=== PATIENT | male | born 1950 | race Caucasian/White ===

== ENCOUNTER 2016-10-08 03:14 | Inpatient (IN) ==
[2016-10-08] MEDS ORDERED: ASPIRIN PO STA (03:22)
--- NOTE | 2016-10-08 04:01 | PROVIDER DOCUMENTATION ---
HPI-Chest Pain - General Chief Complaint: Chest Pain Stated Complaint: chest pain Time Seen by Provider: 10/08/16 03:20 Source: patient Allergies/Adverse Reactions: Patient Allergies Allergy/AdvReac Type Severity Reaction Status Date / Time Sulfa (Sulfonamide Allergy HIVES Verified 06/30/15 16:25 Antibiotics) Home Medications: Home Medication List Medication Instructions Recorded Confirmed Last Taken Type Clopidogrel Bisulfate [Plavix] 75 mg PO DAILY 06/30/15 10/08/16 06/30/15 08:00 History Isosorbide Mononitrate E.r. [Imdur] 120 mg PO DAILY 06/30/15 10/08/16 06/30/15 08:00 History Budesonide/Formoterol Inhaler 2 puff INH RTBID 07/01/15 10/08/16 Unknown History [Symbicort 160/4.5 Microgm Inhaler] Carvedilol 12.5 mg PO BID 07/01/15 10/08/16 Unknown History Gabapentin 300 mg PO HS 07/01/15 10/08/16 Unknown History Oxybutynin [Ditropan] 2.5 mg PO HS 07/01/15 10/08/16 Unknown History Temazepam 15 mg PO HS 07/01/15 10/08/16 Unknown History Nitroglycerin [Nitroglycerin 1 spray SL Q5M PRN PRN #1 bottle 07/16/15 10/08/16 Unknown Rx Lingual [place]] Alprazolam 1 mg PO PRN PRN 10/08/16 10/08/16 Unknown History Amlodipine Besylate 5 mg PO DAILY 10/08/16 10/08/16 Unknown History Furosemide 40 mg PO DAILY 10/08/16 10/08/16 Unknown History Hydrochlorothiazide 25 mg PO DAILY 10/08/16 10/08/16 Unknown History Iron Carbonyl/Vit C/Vit B12/FA 1 tab PO DAILY 10/08/16 10/08/16 Unknown History [Icar-C Plus] Mirtazapine 30 mg PO DAILY 10/08/16 10/08/16 Unknown History Paroxetine HCl 60 mg PO DAILY 10/08/16 10/08/16 Unknown History Quetiapine Fumarate 25 mg PO DAILY 10/08/16 10/08/16 Unknown History - History of Present Illness-CP Nature of Presenting Problem: hx of ihdz sp cabg woke up midnight with central chest pain out of spray ntg pain pushing4 hrs Location: reports: substernal, central Chest Pain Radiation: reports: no radiation Quality of Pain: reports: pressure Severity in ED: moderate Onset/Duration: 4-6 hours ago Timing: still present Context/Activities at Onset: reports: sleep Modifying Factors: improves with: nothing Associated Symptoms: denies: diaphoresis, dizziness, edema, heartburn Nitro Today/Relief: provided by EMS Aspirin Treatment Today: no aspirin today Prior Chest Pain/Cardiac Workup: reports: angina, cardiac cath, cardiolite scan , echocardiography, heart attack, stress test, thallium scan Similar Symptoms Previously?: Yes Recently Seen Here or By Another Healthcare Provider: No Review of Systems - Adult - REVIEW OF SYSTEMS - ADULT Constitutional: reports: no symptoms reported Eyes: reports: no symptoms reported Ears, Nose, Mouth & Throat: reports: no symptoms reported Cardiovascular: reports: chest pain Respiratory: reports: no symptoms reported Gastrointestinal: reports: no symptoms reported Genitourinary: reports: no symptoms reported Musculoskeletal: reports: no symptoms reported Integumentary: reports: no symptoms reported Neurological: reports: no symptoms reported Psychiatric: reports: no symptoms reported Endocrine: reports: no symptoms reported Hematologic/Lymphatic: reports: no symptoms reported Allergic/Immunologic: reports: no symptoms reported Past History - Adult - PAST MEDICAL HISTORY-ADULT Review of Records: reports: Nursing Assessment Review, Medications Reviewed, Social history reviewed & non-contributory. Major Childhood Illnesses: reports: denies history Cardiovascular: reports: CAD, HTN, hyperlipidemia, pacemaker Respiratory: reports: asthma, COPD, other (toxic exposure agent orange in [place]) Gastrointestinal: reports: denies history Obstetrical/Gynecological: reports: denies history Genitourinary: reports: denies history Musculoskeletal: reports: denies history Neurological: reports: denies history Endocrine/Immune: reports: Diabetes Other Conditions: reports: denies history - PRIOR SURGERIES/PROCEDURES Surgical/Procedure History: reports: CABG, pacemaker, hernia repair - IMMUNIZATION STATUS Childhood Immunizations: See Nurse Assessment Flu Vaccine: See Nurse Assessment - FAMILY HISTORY Family History: reviewed, not pertinent - SOCIAL HISTORY Smoking: denies Living Situation: family Physical Exam-General - PHYSICAL EXAM-ADULT Initial Vital Signs Reviewed: Yes - CONSTITUTIONAL General Appearance: appears well, alert, mild distress - EYES Eyes: PERRL/EOMI, pink conjunctivae - HEAD, EARS, NOSE, MOUTH & THROAT HENMT: normocephalic/atraumatic, moist mucous membranes, normal ENT inspection - NECK Neck: non-tender, full range of motion, supple - RESPIRATORY Respiratory: lungs clear - CARDIOVASCULAR Cardiovascular: regular rate, rhythm, no edema - GASTROINTESTINAL (ABDOMEN) Abdominal Exam: normal bowel sounds, non tender, soft - LYMPHATIC Lymphatic: no adenopathy - MUSCULOSKELETAL Back Exam: normal inspection, no CVA tenderness, no vertebral tenderness Extremity: normal range of motion, non-tender, normal gait - SKIN Integumentary: normal color, normal turgor - NEUROLOGIC Neurologic: grossly normal - PSYCHIATRIC Psych/Mental Status: oriented x 3 Progress - PLAN OF CARE/RESULTS Progress/Plan/Lab Results: Vital Signs - 8 hr 10/08/16 03:16 10/08/16 04:42 10/08/16 05:57 Temperature 98.2 F 98.0 F 98.0 F Pulse Rate 102 H 92 H 79 Respiratory Rate 18 18 18 Blood Pressure 170/92 119/78 112/61 O2 Sat by Pulse Oximetry 100 99 99 10/08/16 06:34 10/08/16 07:27 10/08/16 08:33 Temperature 98.0 F 97.8 F Pulse Rate 92 H 88 88 Respiratory Rate 18 16 16 Blood Pressure 163/76 142/83 152/86 O2 Sat by Pulse Oximetry 96 99 100 Laboratory Results - last 24 hr 10/08/16 10/08/16 10/08/16 03:35 03:35 03:35 WBC RBC Hgb Hct MCV MCH MCHC RDW Std Deviation Plt Count MPV Immature Gran % (Auto) Neut % (Auto) Lymph % (Auto) Ocean % (Auto) Eos % (Auto) Baso % (Auto) Immature Gran # (Auto) Neut # (Auto) Lymph # (Auto) [place] # (Auto) Eos # (Auto) Baso # (Auto) PT INR APTT (Factor Assay) D-Dimer Specimen Type Sample Site pH pCO2 pO2 HCO3 Base Excess Oxyhemoglobin ABG O2 Sat (Calculated) ABG O2 Saturation ABG Carboxyhemoglobin ABG Methemoglobin Roman Test A-a O2 Difference Total Hemoglobin Lactate Liter Flow Blood Gas Modality FiO2 % Sodium 133 L Potassium 4.2 Chloride 94 L Carbon Dioxide 20 L Anion Gap 19 BUN 20 Creatinine 1.2 Estimated GFR/1.73 m2 60 BUN/Creatinine Ratio 17 Glucose 522 H* Calculated Osmolality 293 Calcium 8.8 Magnesium 2.1 Total Bilirubin < 0.15 L AST 25 ALT 31 Alkaline Phosphatase 112 Creatine Kinase 308 H Creatine Kinase Index 3.2 H CK-MB (CK-2) 9.89 H Troponin T < 0.010 [id number] Pept 418 H Total Protein 7.6 Albumin 4.7 Globulin 3.0 Albumin/Globulin Ratio 2.0 10/08/16 10/08/16 10/08/16 03:35 03:35 04:36 WBC 8.60 RBC 3.49 L Hgb 7.2 L Hct 26.2 L MCV 75.1 L MCH 20.6 L MCHC 27.5 L RDW Std Deviation 16.9 H Plt Count 259 MPV 12.0 H Immature Gran % (Auto) 0.9 H Neut % (Auto) 83.3 H Lymph % (Auto) 11.3 L Ocean % (Auto) 4.3 Eos % (Auto) 0.0 Baso % (Auto) 0.2 Immature Gran # (Auto) 0.08 H Neut # (Auto) 7.16 H Lymph # (Auto) 0.97 L Ocean # (Auto) 0.37 Eos # (Auto) 0.00 Baso # (Auto) 0.02 PT 13.3 INR 0.98 APTT (Factor Assay) 25.8 D-Dimer < 0.22 L Specimen Type ARTERIAL Sample Site L RADIAL pH 7.43 pCO2 34 L pO2 105 H HCO3 23.8 Base Excess -1.5 Oxyhemoglobin 97.1 ABG O2 Sat (Calculated) 10.5 L ABG O2 Saturation 100.2 H ABG Carboxyhemoglobin 2.30 ABG Methemoglobin 0.8 Roman Test YES A-a O2 Difference 81.0 Total Hemoglobin 7.5 L Lactate 6.20 H* Liter Flow 3.0 Blood Gas Modality CANNULA FiO2 % 32.0 Sodium Potassium Chloride Carbon Dioxide Anion Gap BUN Creatinine Estimated GFR/1.73 m2 BUN/Creatinine Ratio Glucose Calculated Osmolality Calcium Magnesium Total Bilirubin AST ALT Alkaline Phosphatase Creatine Kinase Creatine Kinase Index CK-MB (CK-2) Troponin T [id number] Pept Total Protein Albumin Globulin Albumin/Globulin Ratio 10/08/16 10/08/16 06:07 06:07 WBC RBC Hgb Hct MCV MCH MCHC RDW Std Deviation Plt Count MPV Immature Gran % (Auto) Neut % (Auto) Lymph % (Auto) Ocean % (Auto) Eos % (Auto) Baso % (Auto) Immature Gran # (Auto) Neut # (Auto) Lymph # (Auto) [place] # (Auto) Eos # (Auto) Baso # (Auto) PT INR APTT (Factor Assay) D-Dimer Specimen Type Sample Site pH pCO2 pO2 HCO3 Base Excess Oxyhemoglobin ABG O2 Sat (Calculated) ABG O2 Saturation ABG Carboxyhemoglobin ABG Methemoglobin Roman Test A-a O2 Difference Total Hemoglobin Lactate Liter Flow Blood Gas Modality FiO2 % Sodium Potassium Chloride Carbon Dioxide Anion Gap BUN Creatinine Estimated GFR/1.73 m2 BUN/Creatinine Ratio Glucose Calculated Osmolality Calcium Magnesium Total Bilirubin AST ALT Alkaline Phosphatase Creatine Kinase 271 H Creatine Kinase Index CK-MB (CK-2) Troponin T 0.026 D [id number] Pept Total Protein Albumin Globulin Albumin/Globulin Ratio Orders Category Date Time Status Cardiac Monitoring DIRECTED Care 10/08/16 03:22 Active Oxygen Therapy- ED Nursing DIRECTED Care 10/08/16 03:22 Active Saline Loc NOW Care 10/08/16 03:22 Active CHEST-2 VIEWS [RAD] Stat Exams 10/08/16 03:22 Completed ABG [RESP] Routine Lab 10/08/16 04:36 Completed CBC WITH ELECTRONIC DIFF [HEME] Stat Lab 10/08/16 03:35 Completed CK PROFILE [SP CHEM] Stat Lab 10/08/16 03:35 Completed CK TOTAL [CHEM] Stat Lab 10/08/16 06:07 Completed COMPREHENSIVE METABOLIC PANEL [CHEM] Stat Lab 10/08/16 03:[address] D-D[address]ER [address] [COAG] Stat Lab 10/08/16 03:35 Completed MAGNESIUM [CHEM] Stat Lab 10/08/16 03:35 Completed PRO B-NATRIURETIC PEPTIDE Stat Lab 10/08/16 03:35 Com[address]IME WITH INR PL [COAG] Stat Lab 10/08/16 03:[address] [COAG] Stat Lab 10/08/16 03:35 Completed TROPONIN T Stat Lab 10/08/16 03:35 Completed TROPONIN T Stat Lab 10/08/16 06:07 Completed Aspirin Med 10/08/16 03:22 Discontinued 325 mg PO STAT STA Nitroglycerin Med 10/08/16 07:14 Discontinued 1 inch TOP NOW ONE Nitroglycerin Sl [Nitroglycerin] Med 10/08/16 04:08 Discontinued 0.4 mg SL NOW ONE EKG [EKG] Stat Ther 10/08/16 03:22 Draft EKG [EKG] Stat Ther 10/08/16 05:51 Draft Result Diagrams: 10/08/16 03:35 10/08/16 03:35 - REASSESSMENT Reassessment #2 Time Reassessed: 07:06 (accepted @ shift change. For past mo, pt says gets CP when he runs out of Oxygen. He has been out since Friday. He was also out of NTG spray. CP is sharp, ant chest, rad to L arm, assoc with SOB. Had similar CP in ED when got up to go to RR, also had Nausea this time. No cough, no fever , no reason to suspect sepsis) - EKG 1 Time of EKG reading by physician:: 04:02 EKG Read and Signed by:: Bj Walters Rate: 100 Rhythm: sinus [place]: normal QRS: normal NE Interval: normal ST Wave: depressed 2 Time of EKG reading by physician:: 06:04 EKG Read and Signed by:: Bj Walters EKG Interpretation (*Must complete 3 of following elements*): Abnormal Rate: 84 Rhythm: sinus [place]: normal QRS: normal NE Interval: normal ST Wave: depressed, non-specific ST changes Prior EKG Comparison: unchanged from prior 3 Time of EKG reading by physician:: 07:10 EKG Read and Signed by:: Juan Carlos Gilmore EKG Interpretation (*Must complete 3 of following elements*): Abnormal Rate: 109 Rhythm: sinus QRS: normal ST Wave: depressed (v3-v6) Prior EKG Comparison: changes noted Comments: St depression is increased since 2nd EKG - CONSULTS/PCP/HOSPITALIST Notification #1 *Consult/PCP/Hospitalist*: Ana Time Discussed: 07:10 Consult Disposition: Admit #2 Consult: Kenny Time Discussed: 07:30 Reason/Comments: may admit @ [place] Consult Disposition: other (will see as consult, need records, and echo) - CHANGE OF SHIFT REPORT (ED Provider) Report Given and Care Transferred to:: dr gilmore Time of Transfer: 06:17 Items Pending: Labs Departure - Departure Time of Disposition Decision: 09:23 DIAGNOSIS: Acute coronary syndrome Disposition: ADMITTED INPATIENT 09 Certified Medical Emergency: Emergent Condition: Stable Referrals and Follow-Ups: Rip Ruelas MD [Primary Care Provider] - - Critical Care Note This patient required my direct & personal management of CC.: No
[2016-10-08] MEDS ORDERED: NITROGLYCERIN SL ONE (04:08)
[2016-10-08 04:15] LABS: AGAP 19; ALBUMIN 4.7 g/dL (3.5-5.0); ALKALINE PHOSPHATASE 112 U/L (32-122); BUN 20 mg/dL (8-22); CALCIUM 8.8 mg/dL (8.8-10.2); CHLORIDE 94 mmol/L (98-107); CK PROFILE 308 U/L (24-204); COSMO 293; GOT 25 U/L (10-34); GPT 31 U/L (10-44); MAGNESIUM 2.1 mg/dL (1.5-2.7); POTASSIUM 4.2 mmol/L (3.5-5.1); SODIUM 133 mmol/L (136-145); TCO2 20 mmol/L (25-35); TOTAL BILIRUBIN < 0.15 mg/dL (0.20-1.00); TOTAL PROTEIN 7.6 g/dL (6.3-8.3)
[2016-10-08 04:16] LABS: BASO% 0.2 % (0.0-0.8); HEMATOCRIT 26.2 % (42.0-52.0); HEMOGLOBIN 7.2 g/dL (14.0-18.0); IMM GRAN# 0.08 X1000 (0.0-0.04); IMM GRAN% 0.9 % (0.0-0.5); LYMPH# 0.97 X1000 (1.2-3.4); LYMPH% 11.3 % (20.5-51.1); MANUAL DIFF NEEDED? NO; MCH 20.6 PG (27-31); MCHC 27.5 g/dL (33-37); MCV 75.1 FL (81-99); MONO# 0.37 X1000 (0.11-0.59); MONO% 4.3 % (1.7-9.3); NEUT% 83.3 % (42.2-75.2); PLT 259 X1000 (130-400); RBC 3.49 XMIL (4.7-6.1)
[2016-10-08 04:41] LABS: CK INDEX 3.2 (0.0-2.5); CK-MB 9.89 ng/mL (0.0-5.0)
[2016-10-08 04:55] LABS: BE -1.5 mmoll (-3.0-3.0); BLOOD TYPE ARTERIAL; DRAW SITE L RADIAL; METHB 0.8 % (0.0-1.5); O2(CT) 10.5 mL/dL (15.0-23.0); PCO2(98.6) 34 mmHg (35-45); PO2(98.6) 105 mmHg (60-100); SAMPLE BLOOD; SAO2 100.2 % (95.0-100.0); THB 7.5 g/dL (11.5-17.4); pH(98.6) 7.43 (7.35-7.45)
[2016-10-08 04:58] LABS: ALLEN TEST YES; MODALITY CANNULA
[2016-10-08 05:22] LABS: INR 0.98 (0.86-1.15); PROTIME 13.3 Seconds (12.1-15.5)
[2016-10-08 05:23] LABS: PTT PL 25.8 Seconds (22.6-43.9)
--- NOTE | 2016-10-08 06:07 | EKG Report ---
Test Performed on : 10/08/2016 06:01:49 AM Test Reason : 2nd set Blood Pressure : / mmHG Vent. Rate : 084 BPM Atrial Rate : 084 BPM P-R Int : 142 ms QRS Dur : 090 ms QT Int : 388 ms P-R-T Axes : 066 040 176 degrees QTc Int : 458 ms Normal sinus rhythm. ST \T\ T wave abnormality, consider inferior ischemia ST \T\ T wave abnormality, consider anterolateral ischemia Abnormal ECG When compared with ECG of 16-JUL-2015 19:31, Sinus rhythm. has replaced Electronic ventricular pacemaker Unconfirmed Result
[2016-10-08] MEDS ORDERED: NITROGLYCERIN TOP ONE (07:14)
--- NOTE | 2016-10-08 07:32 | EKG Report ---
Test Performed on : 10/08/2016 06:52:21 AM Test Reason : CHEST PAIN Blood Pressure : / mmHG Vent. Rate : 109 BPM Atrial Rate : 109 BPM P-R Int : 130 ms QRS Dur : 088 ms QT Int : 350 ms P-R-T Axes : 074 056 125 degrees QTc Int : 471 ms Atrial-sensed ventricular-paced rhythm Abnormal ECG When compared with ECG of 08-OCT-2016 06:01, Electronic ventricular pacemaker has replaced Sinus rhythm. Unconfirmed Result
--- NOTE | 2016-10-08 08:34 | Diag Imaging Result Doc PS360 ---
EXAM: CHEST-2 VIEWS HISTORY: Chest pain COMMENT: There are sternotomy wires. There is a pacemaker on the left. There are multiple surgical clips over the mediastinum. There is apparently a mesh over the area of the hiatus. There is no evidence of acute cardiac or pulmonary disease and compared with the previous study of 07/16/2015 there has been no significant change. IMPRESSION: Stable chest. Electronically signed by Scott Bella 10/08/2016 8:32 AM
[2016-10-08] MEDS ORDERED: ZOFRAN PO PRN (09:26)
[2016-10-08] MEDS ORDERED: MORPHINE IV PRN ×2 (09:26→09:50)
[2016-10-08] MEDS ORDERED: TYLENOL PO PRN (09:26)
[2016-10-08] MEDS ORDERED: ZOFRAN ODT PO PRN (09:51)
[2016-10-08] MEDS: NITROGLYCERIN TOP SCH ×3 (12:20→20:51)
[2016-10-08] MEDS: HUMULIN R (PARKWAY) SUBQ SCH ×3 (12:30→20:51)
--- NOTE | 2016-10-08 14:28 | EKG Report ---
Test Performed on : 10/08/2016 2:04:55 PM Test Reason : Cardiac eval Blood Pressure : / mmHG Vent. Rate : 100 BPM Atrial Rate : 100 BPM P-R Int : 132 ms QRS Dur : 092 ms QT Int : 348 ms P-R-T Axes : 077 072 246 degrees QTc Int : 448 ms Normal sinus rhythm. Marked ST abnormality, possible inferior subendocardial injury Marked ST abnormality, possible anterior subendocardial injury Abnormal ECG When compared with ECG of 08-OCT-2016 06:52, Sinus rhythm. has replaced Electronic ventricular pacemaker Confirmed by Bj Walters MD ([id number]) on 10/23/2016 10:10:33 PM
--- NOTE | 2016-10-08 14:42 | CONSULTATION ---
DATE OF CONSULTATION: 10/08/2016 IMPRESSION: 1. Accelerated chest pain with mixed features probably representing unstable angina. 2. Severe anemia which is a new diagnosis. Microcytosis evident. 3. Atherosclerotic coronary disease. A) Status post coronary bypass grafting in 1999. B) Most recent evaluation with cardiac catheterization reportedly 6 months ago in [place] and demonstrated no significant coronary obstructive lesions or graft lesions to merit percutaneous intervention and medical therapy recommended. Records not yet available. 4. Severe COPD requiring chronic home oxygen. The patient's interruption of oxygen supply has also contributed to angina symptoms. 5. Hypertension. 6. Type 2 diabetes mellitus. 7. Hypercholesterolemia. 8. History of previous longstanding cigarette use. Discontinued 7 years ago. 9. History of previous heavy alcohol use also discontinued several years ago. 10. Status post permanent pacemaker. RECOMMENDATIONS: 1. Given the low threshold for chest pain in the setting of severe microcytic anemia and severe COPD, favor going ahead and transfusing 2 units packed red blood cells. 2. Obtain iron studies prior to transfusion. 3. Obtain previous cardiac catheterization report. 4. Serial cardiac enzymes. 5. Further recommendations to follow. May potentially consider myocardial perfusion imaging once patient's symptoms stabilize. 6. Ultimately patient will likely need a GI evaluation for possible gastrointestinal blood loss. HISTORY: This 66-year-old, white male, with past history of previous coronary bypass grafting in 1999, severe COPD requiring chronic home oxygen, hypertension, hypercholesterolemia, and type 2 diabetes mellitus was admitted to the emergency room for further evaluation of accelerated chest pain symptoms. He describes chest pain in the left anterior chest and just relates that it is sharp. However he further clarifies that is not a piercing discomfort but hard to describe. Discomfort may radiate to his left arm. He does note the discomfort seems worse with deep breath. He relates that whenever he has not worn his oxygen he might get such discomfort and discomfort might be relieved by wearing his oxygen and taking nitroglycerin. In the last day or so he ran out of oxygen and nitroglycerin. His chest symptoms accelerated. He still does not have any oxygen and had an episode of chest discomfort this morning that did not go away after 4 sublingual nitroglycerins. He came to the emergency room. His discomfort improved with nitroglycerin and oxygen. ECG was abnormal. Initial troponin was normal. He was subsequently admitted for further workup. He relates he has had some recurrence of chest discomfort when he took his oxygen off and walked to the bathroom. Discomfort improved with replacement of oxygen and submental nitroglycerin. He has had no melena or bright red blood per rectum. He relates he had evaluation with cardiac catheterization procedure in [place] 6 months ago and was told he did not need a stent and continued medical therapy was appropriate. Records not yet available. PAST MEDICAL HISTORY: 1. Atherosclerotic coronary disease as outlined above. 2. Hypertension. 3. Type 2 diabetes mellitus. 4. Hypercholesterolemia. 5. History of previous longstanding significant cigarette use. Discontinued 7 years ago. 6. History of previous heavy alcohol use. Discontinue several years ago. PAST SURGICAL HISTORY: Bilateral foot surgeries, 2 hernia repairs, sinus surgery and tonsillectomy. ALLERGIC: Allergic or intolerant to sulfa. MEDICATIONS: Prior to admission as listed. 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 He quit smoking 7 years ago. He also has a history of heavy alcohol use discontinued several years ago. FAMILY HISTORY: Negative for premature coronary disease. REVIEW OF SYSTEMS: Pulmonary: Noteworthy for chronic dyspnea and severe COPD requiring home oxygen. Gastrointestinal: Negative. Constitutional: Negative. The remainder of review of systems negative/noncontributory with 14 total systems reviewed. PHYSICAL EXAMINATION: General: This is an obese older white male, in no distress on supplemental oxygen per nasal cannula. Vital Signs: As recorded stable. HEENT: Extraocular movements intact. Mucous membranes are moist. Neck: Supple. No jugular venous distention. Carotid bruits cannot be appreciated. Chest: Auscultation of the chest reveals diminished breath sounds diffusely. Cardiac Exam: Reveals distant heart sounds and a regular rate and rhythm without appreciable murmur or gallop. Abdomen: Soft, nontender. Bowel sounds are normal. Extremities: Without edema. Neurologic Exam: Reveals him to be alert, fully oriented. Speech is fluent. Moves all 4 extremities equally well. Skin: Warm and dry. Psychiatric: Reveals mood to be appropriate. ECG demonstrates sinus rhythm and ST and T-wave abnormality, consider anterolateral ischemia and consider inferior ischemia. LAB DATA: Remarkable for hematocrit 26.2 with an MCV of 75.1. Initial troponin less than 0.01. Followup troponin 0.026. BUN 20, creatinine 1.2. cc: Taran Sánchez MD
[2016-10-08 14:49] LABS: IRON SATURATION 4 %; TIBC 494 ug/dL; TOTAL IRON 20 ug/dL (53-167); UNBOUND IRON 474 ug/dL (112-346)
[2016-10-08 15:34] LABS: AGAP 19; BUN 18 mg/dL (8-22); CHLORIDE 98 mmol/L (98-107); COSMO 290; SODIUM 139 mmol/L (136-145); TCO2 22 mmol/L (25-35)
[2016-10-08 15:53] LABS: HEMATOCRIT 26.2 % (42.0-52.0); HEMOGLOBIN 7.5 g/dL (14.0-18.0); MCH 21.4 PG (27-31); MCHC 28.6 g/dL (33-37); MCV 74.6 FL (81-99); MPV 12.3 FL (7.4-10.4); RBC 3.51 XMIL (4.7-6.1)
--- NOTE | 2016-10-08 16:10 | HISTORY AND PHYSICAL ---
CHIEF COMPLAINT: Chest pain. HISTORY OF PRESENT ILLNESS: This is a 66-year-old male with a past history of CAD with coronary artery bypass grafting in 1999, Severe COPD with home O2, hypertension, hypercholesterolemia and type 2 diabetes. He presented to the emergency room complaining of left anterior chest pain. He describes this as sharp. At times it does radiate to his left arm. He does state that when he takes a deep breath or coughs the discomfort does increase. He states that when he has not worn his oxygen symptoms may appear and when he put his oxygen back on, the pain will subside, at times requiring nitroglycerin with the oxygen for the pain to subside. He ran out of oxygen about 24 hours prior to presenting to the emergency room and chest pains accelerated. The last prompting him to come to the emergency room this morning as his pain persisted despite taking 4 nitroglycerin. Once oxygen was reapplied in the emergency room the chest pain subsided. He has had 1 episode of chest pain since admission. At that time, he did remove his oxygen to walk to the bathroom. The pain did subside shortly after replacing the oxygen. He reports having a cardiac cath about 6 months ago at [place]. No interventions were performed at this time. He states that medical therapy was appropriate. His 1st EKG revealed a sinus rhythm with ST-T wave abnormalities, consider anterior lateral ischemia, consider inferior ischemia. His troponin has been negative on 3 occasions although the last being 0.090 which is the upper limit of normal. He was found to have a hemoglobin and hematocrit of 7.2 and 26.2. He denies any prior diagnosis of anemia, any black or bloody vomitus, black or bloody stools, any recent injuries or surgeries. PAST MEDICAL HISTORY: 1. Atherosclerotic coronary disease status post coronary artery bypass graft in 1999. 2. Severe COPD requiring home O2. 3. Hypertension. 4. Diabetes type 2. 5. Hypercholesterolemia. 6. Long-standing tobacco use discontinued 7 years ago. 7. History of alcohol abuse with last drink greater than 3 years ago. PAST SURGICAL HISTORY: Bilateral foot surgeries, sinus surgery, tonsillectomy. ALLERGIES: Sulfa. HOME MEDICATIONS: A list will be obtained. SOCIAL HISTORY: Is negative for alcohol, tobacco or illicit drug use. REVIEW OF SYSTEMS: A 14 point review of systems is discussed with patient with pertinent positives being stated in the HPI. He does have chronic shortness of breath and dyspnea on exertion due to severe COPD requiring home O2. He denied palpitations, dizziness, syncope, productive cough, fever, chills, black or bloody vomitus, black or bloody stools , hematuria, dysuria, frequency, urgency. PHYSICAL EXAMINATION: GENERAL: This is an obese male who is sitting in the bed, in no distress. VITAL SIGNS: Blood pressure is 155/76 with a heart rate of 84, respirations are 18, temperature is 97.8 degrees oral with room air saturations of 100%. HEENT: Head is normocephalic, atraumatic. Pupils equal, round, react to light. EOMs are intact. Sclerae anicteric. Mucous membranes are moist. NECK: Supple with trachea midline. No JVD noted. CARDIOVASCULAR: Regular rate and rhythm. No rubs, murmurs, or gallops appreciated. Heart sounds are distant. PULMONARY: He has diminished breath sounds throughout with equal rise and fall of chest. No increased work of breathing noted. GASTROINTESTINAL: Abdomen is soft, nontender, nondistended. Bowel sounds in all 4 quadrants. EXTREMITIES: No clubbing, cyanosis, or edema. Pulses are palpable x4. Calves are nontender. NEUROLOGIC: He is alert and oriented x3. DIAGNOSTICS: EKG reveals sinus rhythm with ST-T wave abnormalities. Consider anterior lateral ischemia and consider inferior ischemia. LABS: Hemoglobin 7.2, hematocrit 26.2 and platelets of 259,000. MCV is 75.1. Troponins are negative on multiple occasions being less than 0.010, 0.026 and 0.090. BUN is 20, creatinine 1.2 with a glucose of 522. ASSESSMENT AND PLAN: 1. Chest pain probably representing unstable angina. 2. Severe anemia which is a new diagnoses. 3. Arteriosclerotic coronary artery disease, status post grafting in 1999 with a cardiac catheterization within the last 6 months that revealed no significant obstructions with recommendations for medical treatment. 4. Severe COPD requiring home O2. 5. Hypertension. 6. Diabetes type 2. 7. Hypercholesterolemia. 8. History of tobacco use. 9. History of alcohol use. 10. Status post permanent pacemaker. The patient will be transferred to ICU for close monitoring. We will give 2 units of packed cells and trend labs. As his troponin is rising we will continue to trend troponins. Of course, we will give supplemental oxygen. Identify his home medications and continue as appropriate. Fingerstick blood sugars, pattern blood glucose with sliding scale insulin. Will Hemoccult stools although it should be noted the patient is on iron which will make the stools black. Further treatments pending hospital course. Dictated by RAFAEL Zepeda for Jony Perez MD cc: RAFAEL Zepeda MD [facility]
--- NOTE | 2016-10-08 16:54 | ECHO REPORT ---
ORDER DATE: 10/08/2016 MEASUREMENTS: 1. Interventricular septum 1.2. Left ventricular posterior wall 1.4. Diastolic diameter 4.3. Left atrium 3.9. Aorta 3.9. 2. Mitral valve was normal. There was mitral annular calcification. Tricuspid valve was normal. 3. Pacing leads were noted in the right chamber. 4. Aortic valve leaflets were trileaflet, calcified, not very well visualized. 5. Normal left ventricular cavity size. Estimated ejection fraction of 60-65%. 6. There is mitral annular calcification. 7. There is mild mitral regurgitation. Peak velocity across the aortic valve was 3 m/sec with a mean gradient of 18 mmHg. Aortic valve area of 1.2 square cm. There is mild aortic stenosis associated with mild aortic regurgitation. 8. There is mild tricuspid regurgitation. Peak velocity across the tricuspid valve was 2.3 m/sec. Pulmonary artery systolic pressure of 32 mmHg. 9. There is left atrial enlargement. 10. There is no pericardial effusion or obvious intracardiac mass or thrombus seen. cc: Cl High MD
[2016-10-08] MEDS ORDERED: LASIX PO PRN (17:59)
[2016-10-08] MEDS ORDERED: NS 500 ML ONE (18:32)
[2016-10-08] MEDS: SYMBICORT 160/4.5 MICROGM INHALER INH SCH (19:40)
[2016-10-08] MEDS: REMERON PO SCH (20:50)
[2016-10-08] MEDS: NEURONTIN PO SCH (20:50)
--- NOTE | 2016-10-08 21:35 | EKG Report ---
Test Performed on : 10/08/2016 9:26:56 PM Test Reason : Cardiac eval Blood Pressure : / mmHG Vent. Rate : 077 BPM Atrial Rate : 077 BPM P-R Int : 122 ms QRS Dur : 094 ms QT Int : 366 ms P-R-T Axes : 007 068 228 degrees QTc Int : 414 ms Normal sinus rhythm. ST \T\ T wave abnormality, consider inferior ischemia ST \T\ T wave abnormality, consider anterolateral ischemia Abnormal ECG When compared with ECG of 08-OCT-2016 14:04, (Unconfirmed) ST no longer depressed in Inferior leads Confirmed by Bj Walters MD ([id number]) on 10/23/2016 10:09:25 PM
[2016-10-09] MEDS: NITROGLYCERIN TOP SCH ×4 (03:52→22:05)
[2016-10-09 06:17] LABS: MANUAL DIFF NEEDED? NO
[2016-10-09] MEDS: HUMULIN R (PARKWAY) SUBQ SCH ×4 (06:35→22:05)
[2016-10-09 06:39] LABS: AGAP 13; ALBUMIN 4.4 g/dL (3.5-5.0); ALKALINE PHOSPHATASE 86 U/L (32-122); BUN 19 mg/dL (8-22); CALCIUM 8.5 mg/dL (8.8-10.2); CHLORIDE 99 mmol/L (98-107); COSMO 277; GOT 20 U/L (10-34); GPT 25 U/L (10-44); SODIUM 135 mmol/L (136-145); TCO2 23 mmol/L (25-35); TOTAL PROTEIN 7.1 g/dL (6.3-8.3)
[2016-10-09 06:55] LABS: BASO% 0.4 % (0.0-0.8); EOS# 0.02 X1000 (0.0-0.7); EOS% 0.1 % (0.0-10.0); HEMATOCRIT 30.4 % (42.0-52.0); IMM GRAN# 0.13 X1000 (0.0-0.04); IMM GRAN% 0.9 % (0.0-0.5); LYMPH# 1.97 X1000 (1.2-3.4); LYMPH% 14.3 % (20.5-51.1); MCH 22.7 PG (27-31); MCHC 29.6 g/dL (33-37); MCV 76.6 FL (81-99); MONO# 1.06 X1000 (0.11-0.59); MONO% 7.7 % (1.7-9.3); MPV 12.2 FL (7.4-10.4); NEUT% 76.6 % (42.2-75.2); PLT 260 X1000 (130-400); RBC 3.97 XMIL (4.7-6.1)
[2016-10-09 07:16] LABS: CK INDEX 5.8 (0.0-2.5); CK-MB 12.48 ng/mL (0.0-5.0)
[2016-10-09] MEDS: SYMBICORT 160/4.5 MICROGM INHALER INH SCH ×2 (07:56→20:46)
[2016-10-09] MEDS: PAXIL PO SCH (08:06)
[2016-10-09] MEDS: SEROQUEL PO SCH (08:06)
[2016-10-09] MEDS: IMDUR PO SCH (08:06)
[2016-10-09] MEDS: NORVASC PO SCH (08:07)
[2016-10-09] MEDS: HYDROCHLOROTHIAZIDE PO SCH (08:07)
[2016-10-09] MEDS: ASPIRIN PO SCH (08:07)
--- NOTE | 2016-10-09 08:32 | PROGRESS NOTE ---
DATE: 10/09/2016 SUBJECTIVE: Patient notes he is feeling a little bit better. Denies any current chest pains or palpitations this morning. Denies any GI or issues. Denies any fevers or chills. PHYSICAL EXAMINATION: Vital Signs: Temperature 98, pulse 64, respiratory rate 20, BP 163/84, saturation 100% on room air. General: Patient is awake, alert. He is currently in no respiratory distress. He is pleasant to talk with. Speech is regular. Memory is intact. Neck: Supple. CV: Regular rate. Chest: Clear. No wheezing. No crackles. Abdomen: Soft. DIAGNOSTIC DATA: WBCs 13, hemoglobin and hematocrit improved to 9 and 30. Sodium 135, glucose 178. ASSESSMENT: 1. Chest pain, resolved. 2. Severe anemia, unclear as to the etiology. Most likely secondary to malnutrition and poor production. He has no signs nor symptoms of bleeding. We will continue to attempt to Hemoccult stools. 3. Known coronary artery disease. 4. Chronic obstructive pulmonary disease, requiring oxygen. 5. Hypertension. 6. Diabetes. 7. Leukocytosis of undetermined etiology. 8. Elevated troponin at 0.1 with an elevated MB fraction at 12.48. PLAN: Cardiology is on board. We will discuss with him his recent elevation in his cardiac enzymes. Further orders per them. We will move him to the floor after discussion with cardiology. cc: Jnoy Perez MD
[2016-10-09] MEDS ORDERED: COREG PO SCH (09:00)
[2016-10-09] MEDS: ICAR-C PLUS PO SCH (11:55)
[2016-10-09] MEDS: XANAX PO ONE ×2 (11:55→12:29)
[2016-10-09] MEDS ORDERED: XANAX PO PRN (12:59)
--- NOTE | 2016-10-09 17:45 | PROGRESS NOTE ---
DATE: 10/09/2016 SUBJECTIVE: Mr. Smith reports no episodes of chest pain since his blood transfusions. PHYSICAL EXAMINATION: He is afebrile. His heart rate is 86. His blood pressure is 128/64. Generally: No acute distress. Cardiovascular: Regular rate and rhythm. He has a soft 2/6 systolic murmur best heard at the right upper sternal border. No lower extremity edema. Chest: Sounds clear with prolonged expiratory phase. He has somewhat reduced breath sounds diffusely. He has no increased work of breathing. Abdomen: Soft, nontender, nondistended. No obvious organomegaly. Skin Exam: Warm and dry throughout. PERTINENT DATA: His echo showed an EF of 60-65% with evidence for mild aortic stenosis with a mean gradient of 18. His laboratory data shows hematocrit has improved to 30.4 from 26.2. His platelet count is 260,000. His sodium is 135, potassium is 4. BUN is 19, creatinine 0.8. His cardiac enzymes have gone to 0.119 per the troponin. ASSESSMENT: Non ST-elevation [place] likely supply/demand mismatch. PLAN: We will check a myocardial perfusion scan in the morning. If this matches up with his cardiac cath from July 2015 which showed a free VIDAL graft to the right coronary and an occluded circumflex with no other bypass grafts visualized and no other significant lesion then we will likely allow him to be discharged home with further evaluation via GI for his blood loss anemia. I believe the most likely etiology of the troponin elevation as well as the chest pain is a combination of hypoxia related to his chronic COPD and home oxygen dependence as well as his acute anemia. cc: Gene Lara MD
[2016-10-09] MEDS ORDERED: AMBIEN PO PRN (19:50)
[2016-10-09] MEDS: NEURONTIN PO SCH (22:05)
[2016-10-09] MEDS: REMERON PO SCH (22:05)
[2016-10-10] MEDS: NITROGLYCERIN TOP SCH ×3 (04:58→15:33)
[2016-10-10] MEDS: HUMULIN R (PARKWAY) SUBQ SCH ×3 (06:53→16:19)
[2016-10-10] MEDS: SYMBICORT 160/4.5 MICROGM INHALER INH SCH (08:21)
[2016-10-10] MEDS ORDERED: COREG PO SCH ×2 (09:00)
[2016-10-10] MEDS ORDERED: LEXISCAN ONE (11:25)
[2016-10-10] MEDS ORDERED: AMINOPHYLLINE ONE (11:57)
--- NOTE | 2016-10-10 13:44 | Diag Imaging Result Document ---
PROCEDURE NAME: MYOCARDIAL PERF SCAN, STR/REST - 10/10/2016 INDICATION: Chest pain. PROCEDURES PERFORMED: 1. Lexiscan stress. 2. One-day stress rest myocardial perfusion imaging. PROCEDURE IN DETAIL: Mr. Smith was brought to the nuclear laboratory and had a resting study with injection of 12.8 mCi of technetium-99m sestamibi to usual imaging protocol utilized. He subsequently was brought back and had a Lexiscan stress. At peak stress, was injected with 40 mCi of technetium-99m sestamibi to usual imaging protocol utilized. FINDINGS: LEXISCAN STRESS RESULTS: 1. Baseline EKG shows sinus rhythm. There are ST-segment depressions and T-wave inversions noted in the inferior and lateral leads. 2. Lexiscan stress demonstrated some worsening of the baseline ST-segment depressions in the inferior and lateral leads but this did not appear to drop to greater than 1 mm below baseline. He had no significant arrhythmias. PERFUSION IMAGING RESULTS: 1. No evidence of abnormal extracardiac uptake. 2. TID ratio is normal at 0.96. 3. Perfusion imaging demonstrates a moderate to large-sized defect located in the inferior apical, mid inferior lateral, basal inferior lateral and portions of the inferior wall. This defect is mixed. There is a baseline mild intensity defect with a stress defect that is moderate to severe intensity suggesting that there is a baseline amount of scar with worsening ischemia in the same overlying territory. This seems to coincide with the occluded circumflex that he has been noted to have on recent catheterization. 4. The ejection fraction is noted to be normal at 66%. The end-diastolic volume is 148. The end- systolic volume is 51. Normal wall motion is noted. cc: Gene Lara MD
[2016-10-10] MEDS: ASPIRIN PO SCH ×2 (14:16→14:17)
[2016-10-10] MEDS: SEROQUEL PO SCH (14:18)
[2016-10-10] MEDS: IMDUR PO SCH (14:19)
[2016-10-10] MEDS: NORVASC PO SCH (14:19)
[2016-10-10] MEDS: HYDROCHLOROTHIAZIDE PO SCH (14:19)
[2016-10-10] MEDS: ICAR-C PLUS PO SCH (14:19)
[2016-10-10] MEDS: PAXIL PO SCH (14:20)
[2016-10-10 15:02] VITALS: BP 187/68
--- NOTE | 2016-10-10 22:05 | DISCHARGE SUMMARY ---
ADMISSION DATE: 10/08/2016 DISCHARGE DATE: 10/10/2016 DIAGNOSES: 1. [id number] myocardial infarction. Likely supply and demand mismatch. PCP. 2. Severe anemia of unclear etiology status post transfusion 2 units packed cells. 3. Chronic obstructive pulmonary disease requiring home O2. 4. Diabetes type 2. 5. Hypertension. DIAGNOSTICS: 10/08/2016 chest x-ray: Sternotomy wires, pacemaker is on the left, there are multiple surgical clips over the mediastinum, there is apparently a mesh over the hiatus, there is no evidence of acute coronary or pulmonary disease. 10/08/2016 echocardiogram: Normal LV size with EF of 60-65%. 10/10/2016 Lexiscan: Baseline EKG shows sinus rhythm. There are ST-segment depressions and T-wave inversions noted in anterolateral leads. Lexiscan stress test demonstrated some worsening of the baseline ST-segment depressions in the inferolateral leads but did not appear to drop greater than 1 mm below baseline. There were no significant arrhythmias. Perfusion imaging with no evidence of abnormal extracardiac uptake with a moderate to large size defect located inferoapical, mid inferolateral, basal inferolateral and portions of the inferior wall. The defect is mixed. There is a baseline mild intensity defect with stress defect that is moderate to severe in intensity suggesting there is a baseline amount of scar with worsening ischemia in the same overlying territory. This seems to coincide with the occluded circumflex that he has been noted to have on recent catheterization. CONSULTATIONS: Taran Sánchez MD, Cardiology. HOSPITAL COURSE: Mr. Smith presented to the emergency room complaining of left anterior chest pain. He related it as a sharp pain that pierces at times. At times this does radiate to his left arm. He did note, however, that any time he takes his oxygen off or walks with his oxygen off, he does begin to have this chest pain. When he put his oxygen back on, the chest pain subsides within a minute or 2. He did have a [id number] MD with troponins peaking at 0.119. Of note, the first 3 sets were negative from admission. He was noted to have a hemoglobin and hematocrit of 7.2 and 26.2 on admission. Given his low threshold for chest pain in the setting of severe microcytic anemia and COPD, he was transfused. Once he was transfused he had no further chest pain while off his oxygen. He denies any black or bloody vomitus or stools, or any prior history of anemia. We did discuss with the patient and his that he needed to have a Gastroenterology evaluation as an outpatient as his hemoglobin and hematocrits have remained stable since transfusion. DISCHARGE PHYSICAL EXAMINATION: Cardiovascular: Regular rate and rhythm. S1 and S2 are appreciated. He does have a 2/6 systolic murmur heard at the right upper sternal border. Pulmonary: Prolonged expiration with decreased air entry. Gastrointestinal: Abdomen is soft, nontender, nondistended with bowel sounds in all 4 quadrants. Extremities: No clubbing, cyanosis, or edema. DISCHARGE VITAL SIGNS: Blood pressure 187/68 with a heart rate of 73, respirations 18, temperature 97.6 degrees, with O2 saturations of 98-100% on 2 L nasal cannula. DISCHARGE ACTIVITY: As tolerated. DISCHARGE DIET: Healthy heart, diabetic. DISCHARGE MEDICATIONS: 1. Restoril 15 p.o. at bedtime. 2. Gabapentin 300 mg p.o. at bedtime. 3. Imdur 120 daily. 4. Symbicort 160/4.5, 2 puffs b.i.d. 5. Icar-C 1 tablet daily. 6. Remeron 30 mg daily. 7. Seroquel 25 mg daily. 8. Paroxetine 60 mg daily. 9. Alprazolam 1 mg p.o. p.r.n. 10. Furosemide 40 p.o. daily p.r.n. 11. Hydrochlorothiazide 12.5 p.o. daily. 12. Nitroglycerin lingual spray 1 spray every 5 minutes for chest pain up to 3 sprays. 13. Carvedilol 12.5 mg p.o. b.i.d. 14. Norvasc 5 p.o. daily. 15. 25 mg p.o. b.i.d. 16. Amlodipine 5 mg p.o. daily. 17. Ditropan 2.5 p.o. at bedtime. FOLLOWUP: 1. 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 Gaitan, Gastroenterology. We made an appointment for October 24 at 3:30 for evaluation of blood-loss anemia. 3. He has been instructed to hold his Plavix, aspirin and Voltaren until he is evaluated by Gastroenterology. DISPOSITION: He is being discharged home in stable condition with his , with home O2. DISCHARGE TIME: Greater than 30 minute discharge from 3 to 3:35. Dictated by RAFAEL Zepeda for Jony Perez MD cc: RAFAEL Zepeda MD
== END 2016-10-10 16:22 | disposition home or self-care (01) ==
LOC: P.ED 03:14 → P.MEDSURG 03:14 → OBSVTOIN 10:30 → P.ICU 18:07 → P.MEDSURG 10-09 13:09
PROVIDERS: ATTEND Family Medicine